=== PATIENT | female | born 1950 | race Asian ===

== ENCOUNTER → 2019-06-11 | Outpatient (CLI) | payer MEDICARE ==
[~2019-06-11] MED LIST: CEPH500C2 PO; DEXL60CA3 PO; GADOBUTROL 1 MMOL/ML 10 ML VIAL IVP ONE; INDO50CA97 PO; VICOT PO
== END | disposition home or self-care (01) ==
LOC: RADMN 08:38
PROVIDERS: ATTEND Physician Assistant
DX: R93.2 Abnormal findings on diagnostic imaging of liver and biliary tract (principal); I70.0 Atherosclerosis of aorta
CPT/HCPCS: 74183; A9585